=== PATIENT | male | born 1930 | race Caucasian/White ===

== ENCOUNTER 2017-02-11 09:43 | Inpatient (IN) | payer OTHER, BC ==
[2017-02-11 09:48] VITALS: BMI 28.1
--- NOTE | 2017-02-11 10:41 | PDOC ---
History of Present Illness <Cherie Hauser - Last Filed: 02/11/17 13:22> - General History Source: Patient Exam Limitations: No Limitations - History of Present Illness Initial Comments: 02/11/17 11:28 Chief complaint: Wound on left lower extremity anteriorly History of present illness: Patient is an 86-year-old male with a history of venous insufficiency left leg and left lower leg wound. Patient has been followed by a phone center here patient is with his daughter thought that they had an appointment at the wound center today however it was yesterday. Patient' s daughter thinks that the wound is not improving on it, wanted patient seen today however was unable to have an appointment today and was told to come to the ER. Patient's daughter states that her father is constantly on his feet is outside working in the [employer] or doing some type of activity on his feet and does not rest and elevate his legs often. Patient reports that he does wears compression stockings and he uses his cream twice a day and covers the wound with gauze and does not remove it at any time to let wound air out. Patient denies having chills or fever. Skin on left lower extremity is oozing clear fluid. Pt. has h/o MRSA of wound LLE 09/30/16. 02/11/17 16:01 02/12/17 14:37 Timing/Duration: changing over time Severity: mild Associated Symptoms: reports: denies symptoms <DeweyParis - Last Filed: 02/12/17 14:38> - General Chief Complaint: Redness To Affected Area Stated Complaint: (WOUND CARE SENT) Time Seen by Provider: 02/11/17 10:02 Past History <Cherie Hauser - Last Filed: 02/11/17 13:22> - Past Medical History Other medical history: leg ulcer, venous insufficiency left leg - Psycho/Social/Smoking Cessation Hx Anxiety: No Suicidal Ideation: No Smoking History: Never smoked Have you smoked in the past 12 months: No Information on smoking cessation initiated: No Hx Alcohol Use: No Drug/Substance Use Hx: No Substance Use Type: None <Paris Palomo - Last Filed: 02/12/17 14:38> - Past Medical History Allergies/Adverse Reactions: Allergies Allergy/AdvReac Type Severity Reaction Status Date / Time No Known Allergies Allergy Verified 02/11/17 09:44 Home Medications: Ambulatory Orders Collagenase Clostridium Hist. [Santyl] 1 applic TP DAILY #30 oint...g. 12/13/16 Cephalexin [Keflex] 500 mg PO TID #21 capsule MDD 3 02/03/17 Review of Systems - Review of Systems Able to Perform ROS?: Yes Constitutional: No: Symptoms Reported HEENTM: No: Symptoms Reported Respiratory: No: Symptoms reported Cardiac (ROS): No: Symptoms Reported ABD/GI: No: Symptoms Reported : No: Symptoms Reported Musculoskeletal: No: Symptoms Reported Integumentary: Yes: Other (wound left anterior lower leg with clear drainage) Neurological: No: Symptoms reported <Paris Palomo - Last Filed: 02/12/17 14:38> *Physical Exam - Vital Signs Last Vital Signs Temp Pulse Resp BP Pulse Ox 98.6 F 72 18 112/69 98 02/11/17 09:45 02/11/17 09:45 02/11/17 09:45 02/11/17 09:45 02/11/17 11:54 <Cherie Hauser - Last Filed: 02/11/17 13:22> - Vital Signs Last Vital Signs Temp Pulse Resp BP Pulse Ox 98.6 F 72 18 112/69 96 02/11/17 09:45 02/11/17 09:45 02/11/17 09:45 02/11/17 09:45 02/11/17 09:45 - Physical Exam General Appearance: Yes: Appropriately Dressed Respiratory/Chest: positive: Lungs Clear, Normal Breath Sounds. negative: Chest Tender, Respiratory Distress Cardiovascular: positive: Regular Rhythm, Regular Rate, S1, S2 Vascular Pulses: Doralis-Pedis (L): 4+ Comments:: 02/11/17 11:27 + pedal pulse left Extremity: positive: Normal Capillary Refill, Normal Range of Motion, Swelling ( left anterior/medial ankle) Integumentary: positive: Warm, Other (hyperpigmented skin left lower proximal anterior leg 13 cm L x 20 cm W, wound anterior LLE 3.5 cm l x 2.8 w surrounded by erythema left anterior distal leg seeping clear discharge approx 10 cm L X 13 cm w of granulated skin) <Paris Palomo - Last Filed: 02/12/17 14:38> ED Treatment Course - LABORATORY CBC & Chemistry Diagram: 02/11/17 10:42 02/11/17 10:42 - ADDITIONAL ORDERS Additional order review: Laboratory Results 02/11/17 10:42 Sodium 139 Potassium 4.1 Chloride 106 Carbon Dioxide 27 Anion Gap 6 L BUN 14 Creatinine 0.8 Creat Clearance w eGFR > 60 Random Glucose 93 Calcium 8.5 Total Bilirubin 0.4 AST 18 ALT 18 Alkaline Phosphatase 70 Total Protein 6.7 Albumin 3.4 02/11/17 10:42 RBC 4.26 MCV 90.4 MCHC 33.8 RDW 13.3 MPV 7.7 Neutrophils % 67.0 Lymphocytes % 20.5 Monocytes % 10.5 H Eosinophils % 1.5 Basophils % 0.5 - RADIOLOGY Radiology Studies Ordered: Category Date Time Status CHEST X-RAY PORTABLE* [RAD] Stat Radiology 02/11/17 12:53 Ordered <Cherie Hauser - Last Filed: 02/11/17 13:22> - LABORATORY CBC & Chemistry Diagram: 02/12/17 06:00 02/12/17 06:00 <Paris Palomo - Last Filed: 02/12/17 14:38> Medical Decision Making - Medical Decision Making 02/11/17 12:05 Patient is an 86-year-old male with a history of venous insufficiency left leg and left lower leg wound. Patient has been followed by a phone center here patient is with his daughter thought that they had an appointment at the wound center today however it was yesterday. Patient's daughter thinks that the wound is not improving on it, wanted patient seen today however was unable to have an appointment today and was told to come to the ER. Patient's daughter states that her father is constantly on his feet is outside working in the [employer] or doing some type of activity on his feet and does not rest and elevate his legs often. Patient reports that he does wears compression stockings and he uses his cream twice a day and covers the wound with gauze and does not remove it at any time to let wound air out. Patient denies having chills or fever. Skin on left lower extremity is oozing clear fluid. Started treatment with Keflex 500 mg tid for 7 days he reports that he took this medication. Pt. thinks that the Santyl is too strong LEFT LOWER LEG CELLULITIS LLL CHRONIC WOUND LLL VENOUS INSUFFIENCY PLAN: CBC WITH DIFF CMP U/A IV INSERT EKG CHEST PA/LATERAL CONSULT WITH I & D CONSULT WITH FROM WOUND CENTER he will come down to see he reports that pt is non compliant with treatment does not wear compression stockings,applies creams or ointment he likes Dr. Carmona came to se pt. would like him admitted to hospitalist due to po antibiotic failure and cellulitis left left leg, I & D consult, he will order silvadne cream and cassy wrap to area, vancomycin 1 gm IV PB now. Laboratory Tests 02/11/17 02/11/17 10:42 10:42 WBC 6.6 RBC 4.26 Hgb 13.0 Hct 38.5 MCV 90.4 MCH 30.6 MCHC 33.8 RDW 13.3 Plt Count 224 MPV 7.7 Neutrophils % 67.0 Lymphocytes % 20.5 Monocytes % 10.5 H Eosinophils % 1.5 Basophils % 0.5 Sodium 139 Potassium 4.1 Chloride 106 Carbon Dioxide 27 Anion Gap 6 L BUN 14 Creatinine 0.8 Creat Clearance w eGFR > 60 Random Glucose 93 Calcium 8.5 Total Bilirubin 0.4 AST 18 ALT 18 Alkaline Phosphatase 70 Total Protein 6.[address] Navid Ramos hospitalist will admit pt. 02/11/17 12:50 02/11/17 12:54 02/11/17 12:55 02/12/17 14:37 <Paris Palomo - Last Filed: 02/12/17 14:38> *DC/Admit/Observation/Transfer - Discharge Dispostion Admit: Yes <Cherie Hauser - Last Filed: 02/11/17 13:22> <Paris Palomo - Last Filed: 02/12/17 14:38> Diagnosis at time of Disposition: Cellulitis, Chronic ulcer of leg - Referrals
[2017-02-11 11:13] LABS: BASOPHIL 0.5 % (0-2.0); EOSINOPHIL 1.5 % (0-4.5); MCH 30.6 pg (25.7-33.7); MCHC 33.8 g/dl (32.0-35.9); MEAN CELL VOLUME 90.4 fl (80-96); MEAN PLT VOLUME 7.7 fl (7.5-11.1); PLATELET COUNT 224 K/MM3 (134-434); RDW 13.3 % (11.9-15.9); WHITE BLOOD COUNT 6.6 K/mm3 (4.0-10.0)
[2017-02-11 11:35] LABS: ALBUMIN 3.4 g/dl (3.4-5.0); ALK PHOS 70 U/L (45-117); ANION GAP 6 (8-16); BILIRUBIN,TOTAL 0.4 mg/dL (0.2-1.0); CALCIUM 8.5 mg/dL (8.5-10.1); CO2 27 mmol/L (21-32); CREATININE 0.8 mg/dL (0.7-1.3); GLUCOSE,RANDOM 93 mg/dL (74-106); SGOT/AST 18 U/L (15-37); SGPT/ALT 18 U/L (12-78); TOT PROT 6.7 g/dl (6.4-8.2)
[2017-02-11] MEDS ORDERED: VANCOMYCIN 1 GRAM (PRE-DOCKED) 1,000 MG/250 ML BAG IVPB ONE ×2 (12:01→13:30)
--- NOTE | 2017-02-11 13:32 | PN ---
Progress Note (short form) - Note Progress Note: Vascular Surgery pt seen and examined. RLE venous stasis with ulcer Pt well known to wound care clinic Was given keflex for seven days. Left lower ext still has cellulitis Came into ER today. Will start slivadene to left lower ext with cassy for compression. Cultures taken. Will need IV antibiotics. ID input Jose Guadalupe Carmona DO
[2017-02-11 13:57] LABS: URINE APPEARANCE CLEAR; URINE BILIRUBIN NEGATIVE (NEGATIVE); URINE BLOOD NEGATIVE (NEGATIVE); URINE COLOR LTYELLOW; URINE GLUCOSE (UA) NEGATIVE (NEGATIVE); URINE KETONE NEGATIVE (NEGATIVE); URINE LEUK ESTERASE NEGATIVE (NEGATIVE); URINE NITRITE NEGATIVE (NEGATIVE); URINE PROTEIN NEGATIVE (NEGATIVE); URINE UROBILINOGEN NEGATIVE E.U./dl (0.2-1.0)
[2017-02-11] MEDS: SILVER SULFADIAZINE 1% TOP CREAM 50 GM JAR TP SCH ×2 (14:45→15:11)
[2017-02-11] MEDS ORDERED: ACETAMINOPHEN 325 MG TABLET (FP) PO PRN (15:02)
--- NOTE | 2017-02-11 15:11 | HP ---
Admitting History and Physical - Primary Care Physician PCP: Rahat Bianchi MD - Admission Chief Complaint: Non healing LLE History of Present Illness: 86M no PMH except LLE venous stasis who presents to the hospital with his daughter as they thought he had a wound care appointment today, but in fact, their appointment was yesterday. patient told by wound clinic to go to ED. Per patient and his daughter he has had a long history of LLE ulcers. He recently has not been able to heel his LLE. Per daughter he has not stayed of LLE as instructed and has been walking around. He has been using collagenase on his ulcer. He denies nausea vomiting fevers chills chest pain and SOB. He just completed a 7 day course of keflex yesterday and his cellulitis has not improved. History Source: Patient, Family Member Limitations to Obtaining History: Language Barrier - Past Medical History Dermatology: Yes: Cellulitis - Past Surgical History Past Surgical History: Yes: None - Smoking History Smoking history: Former smoker Have you smoked in the past 12 months: No - Alcohol/Substance Use Hx Alcohol Use: No Home Medications - Allergies Allergies/Adverse Reactions: Allergies Allergy/AdvReac Type Severity Reaction Status Date / Time No Known Allergies Allergy Verified 02/11/17 09:44 - Home Medications Home Medications: Ambulatory Orders Collagenase Clostridium Hist. [Santyl] 1 applic TP DAILY #30 oint...g. 12/13/16 Cephalexin [Keflex] 500 mg PO TID #21 capsule MDD 3 02/03/17 Family Disease History - Family Disease History Family History: Denies Review of Systems - Review of Systems Constitutional: reports: No Symptoms Eyes: reports: No Symptoms HENT: reports: No Symptoms Neck: reports: No Symptoms Cardiovascular: reports: No Symptoms Respiratory: reports: No Symptoms Gastrointestinal: reports: No Symptoms Genitourinary: reports: No Symptoms Musculoskeletal: reports: No Symptoms Integumentary: reports: Wound (non healing LLE), Other (venous stasis) Neurological: reports: No Symptoms Endocrine: reports: No Symptoms Physical Examination Vital Signs: Vital Signs Temperature 97.9 F 02/11/17 14:43 Pulse Rate 75 02/11/17 14:43 Respiratory Rate 18 02/11/17 14:43 Blood Pressure 139/71 02/11/17 14:43 O2 Sat by Pulse Oximetry (%) 98 02/11/17 14:43 Constitutional: Yes: Well Nourished, No Distress, Calm Eyes: Yes: Conjunctiva Clear HENT: Yes: Atraumatic, Normocephalic Neck: Yes: Supple, Trachea Midline Cardiovascular: Yes: Regular Rate and Rhythm Respiratory: Yes: Regular, CTA Bilaterally Gastrointestinal: Yes: Normal Bowel Sounds, Soft Extremities: Yes: Other (LLE has proximal healed stasis dermatitis distally circumferentially around the ankle large non healing ulcer with excoriated skin circumferentially) Edema: LLE: Trace Neurological: Yes: Alert, Oriented ...Motor Strength: WNL Assessment/Plan 86M with hsitory of venous stasis and LLE ulceration presents to the hospital with cellulitis after failed PO outpatient treatment with keflex. Given Vanco in ED start Cefazolin 1Gm Q8h Re diet ID consult vascular consult PT consult Wound care with silvadene and compression stockings per vascular Case discussed with attending and mecial team. Full H&P to follow by medical team. Visit type - Emergency Visit Emergency Visit: Yes ED Registration Date: 02/11/17 Care time: The patient presented to the Emergency Department on the above date and was hospitalized for further evaluation of their emergent condition. - New Patient This patient is new to me today: Yes Date on this admission: 02/11/17 - Critical Care Critical Care patient: No
--- NOTE | 2017-02-11 15:25 | PN ---
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
--- NOTE | 2017-02-11 16:10 | HP ---
PCP: Dr. Rahat Bianchi MD CHIEF COMPLAINT: Patient brought by daughter who states that the patient's "leg is not getting better" HISTORY OF PRESENT ILLNESS: Pt is an 86yo M with no PMHx who is well known to Dr. Carmona in his wound care clinic, and presents to the ER because his lower leg leg wound is not improving. Patient is primarily a emirati speaker, speaks adequate mongolian, but most of the history was provided by the Daughter. She states that over a year ago the patient sustained a trauma to his LLE (banged it on something). Since then the leg wound has not improved. The patient has been seen by Dr. Carmona who has treated the wound with Santyl and Mir wraps. 1 week ago they went to Dr. Carmona's office, and he prescribed them Cefalexin PO 500mg TID (but of note, patient and daughter believes that he was supposed to take it only ONCE a day). She said that Dr. Carmona noted to them that if the leg did not improve, he would admit them (likely for IV antibiotics). After 7 days of Cefalexin, they noted no improvement, and went to the ER. ER course was notable for: (1) CBC, CMP (2) Vascular + ID Consult (3) Wound Culture - pending Recent Travel: None PAST MEDICAL HISTORY: None PAST SURGICAL HISTORY: Laser sclerotherapy by Dr. Carmona Social History: Patient lives at home with his . He takes care of his own medical management. 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 1 applic TP DAILY #30 oint...g. 12/13/16 [Santyl] Cephalexin [Keflex] 500 mg PO TID #21 capsule MDD 3 02/03/17 REVIEW OF SYSTEMS CONSTITUTIONAL: No fevers, no chills, no weakness, no YOLANDA HEENT: Endorses mild headaches at times, no nasal congstion, no throat pain, no visual changes CARDIOVASCULAR: No chest pain, no SOB, no palpitations, + peripheral swelling RESPIRATORY: No cough, no SOB, no orthopnea, no wheezing GASTROINTESTINAL: No abd pain, no N/V/D/C GENITOURINARY: No dysuria, hematuria MUSCULOSKELETAL: +myalgia on LLE, NEUROLOGIC: No headache, no focal weakness, no dizziness PHYSICAL EXAMINATION Vital Signs - 24 hr 02/11/17 02/11/17 14:00 14:43 Temperature 97.9 F Pulse Rate 63 Pulse Rate [ 75 Apical] Respiratory 18 18 Rate Blood Pressure 122/70 Blood Pressure 139/71 [Right Arm] O2 Sat by Pulse 100 98 Oximetry (%) PHYSICAL EXAM: GENERAL: Awake, alert, and fully oriented, in no acute distress. EYES: PERRLA, extraocular movements intact, NECK: Normal range of motion, supple without lymphadenopathy. LUNGS: Breath sounds equal, CTABL, No wheezes, and no crackles. HEART: Regular rate and rhythm, normal S1 and S2, 2/6 systolic murmur in R sternal border, ABDOMEN: Soft, nontender, not distended, normoactive bowel sounds MUSCULOSKELETAL: Normal range of motion at all joints. No bony deformities or tenderness. No CVA tenderness. UPPER EXTREMITIES: 2+ pulses, warm, well-perfused. No cyanosis. No clubbing. No peripheral edema. LOWER EXTREMITIES: - RLE: No venous stasis changes, no erythema, no swelling, 2+ pulses, normal temp, well-perfused, no edema, good sensation, 5/5 muscle strength - LLE: Venous stasis changes from mid anterior foot up to mid leg. Open anterior area without epidermal layer leaking with clear/white fluid, 2+ pulses , warmer than the RLE, good sensation, 5/5 muscle strength NEUROLOGICAL: Cranial nerves II-XII intact. Normal speech. Normal gait. LABS: CBC, BMP 02/11/17 10:42 02/11/17 10:42 Wound cultures - pending UA - negative AST - 18; ALT - 18 ASSESSMENT/PLAN: 86yo M patient with chronic LLE cellulitis after failure of PO antibiotics. # LLE Cellulitis - Patient failed Keflex 500mg PO TID x 7 days (as per hx, sounds like patient was not taking correct dose regimen) --> will give one dose Vano 1g IVPB + Cefazolin g IV Q8 - Patient likely overused Santyl (collagenase), causing skin breakdown --> Will switch to Silvadene + MIR wrap - Wound culture pending - Consulted: Dr. Carmona (vascular) + Dr. Steele (Infectious Disease) # Chronic Venous Insufficiency - S/p laser sclerotherapy - MIR wrap ordered, monitor, keep leg elevated # FEN - Fluids: None - Electrolytes: WNL, monitor - Nutrition: Regular Diet # Prophylaxis - DVT: Heparin SQ - GI: Not indicated - Deconditioning - PT ordered # Disposition - Monitor improvement, consult with vascular # Code Status - Will ask about code status Case discussed with Dr. Rachel M.D. who agrees with the plan Visit type - Emergency Visit Emergency Visit: Yes ED Registration Date: 02/11/17 Care time: The patient presented to the Emergency Department on the above date and was hospitalized for further evaluation of their emergent condition. - New Patient This patient is new to me today: Yes Date on this admission: 02/11/17 - Critical Care Critical Care patient: No
--- NOTE | 2017-02-11 16:53 | EKG ---
Test Reason : Blood Pressure : / mmHG Vent. Rate : 063 BPM Atrial Rate : 063 BPM P-R Int : 224 ms QRS Dur : 090 ms QT Int : 400 ms P-R-T Axes : 046 007 051 degrees QTc Int : 409 ms SINUS RHYTHM WITH 1 DEGREE AV BLOCK NONSPECIFIC ST CHANGES NO PREVIOUS ECGS AVAILABLE Confirmed by LUDIN PALMER MD ([id number]) on 02/11/2017 4:52:31 PM Referred By: Confirmed By:LUDIN PALMER MD
[2017-02-11] MEDS: CEFAZOLIN (PRE-DOCKED) 50 ML IVPB SCH (18:42)
[2017-02-11] MEDS: HEPARIN NA (PORCINE) 5,000 UNITS/ML 1ML VIAL SQ SCH (18:43)
--- NOTE | 2017-02-11 20:19 | PN ---
Teaching Attending Note Name of Resident: Gabriella Casarez ATTENDING PHYSICIAN STATEMENT I saw and evaluated the patient. I reviewed the resident's note and discussed the case with the resident. I agree with the resident's findings and plan as documented. SUBJECTIVE: Patient is comfortable with no acute distress OBJECTIVE: Vital Signs Temperature 99.0 F 02/11/17 18:40 Pulse Rate 61 02/11/17 18:40 Respiratory Rate 17 02/11/17 18:40 Blood Pressure 113/76 02/11/17 18:40 O2 Sat by Pulse Oximetry (%) 98 02/11/17 14:43 CBCD WBC 6.6 K/mm3 (4.0-10.0) 02/11/17 10:42 RBC 4.26 M/mm3 (4.00-5.60) 02/11/17 10:42 Hgb 13.0 GM/dL (11.7-16.9) 02/11/17 10:42 Hct 38.5 % (35.4-49) 02/11/17 10:42 MCV 90.4 fl (80-96) 02/11/17 10:42 MCHC 33.8 g/dl (32.0-35.9) 02/11/17 10:42 RDW 13.3 % (11.9-15.9) 02/11/17 10:42 Plt Count 224 K/MM3 (134-434) 02/11/17 10:42 MPV 7.7 fl (7.5-11.1) 02/11/17 10:42 CMP Sodium 139 mmol/L (136-145) 02/11/17 10:42 Potassium 4.1 mmol/L (3.5-5.1) 02/11/17 10:42 Chloride 106 mmol/L (98-107) 02/11/17 10:42 Carbon Dioxide 27 mmol/L (21-32) 02/11/17 10:42 Anion Gap 6 (8-16) L 02/11/17 10:42 BUN 14 mg/dL (7-18) 02/11/17 10:42 Creatinine 0.8 mg/dL (0.7-1.3) 02/11/17 10:42 Creat Clearance w eGFR > 60 (>60) 02/11/17 10:42 Random Glucose 93 mg/dL (74-106) 02/11/17 10:42 Calcium 8.5 mg/dL (8.5-10.1) 02/11/17 10:42 Total Bilirubin 0.4 mg/dL (0.2-1.0) 02/11/17 10:42 AST 18 U/L (15-37) 02/11/17 10:42 ALT 18 U/L (12-78) 02/11/17 10:42 Alkaline Phosphatase 70 U/L (45-117) 02/11/17 10:42 Total Protein 6.7 g/dl (6.4-8.2) 02/11/17 10:42 Albumin 3.4 g/dl (3.4-5.0) 02/11/17 10:42 Current Medications Generic Name Dose Route Start Last Admin Trade Name Freq PRN Reason Stop Dose Admin Acetaminophen 650 mg 02/11/17 15:02 Tylenol - PO Q4H PRN FEVER OR PAIN Heparin Sodium (Porcine) 5,000 unit 02/11/17 18:00 02/11/17 18:43 Heparin - SQ 5,000 unit Q8H-IV KENDRA Administration Cefazolin Sodium 50 mls @ 100 mls/hr 02/11/17 18:00 02/11/17 18:42 Ancef 1gm Ivpb (Pre-Docked) IVPB 100 mls/hr Q8H-IV KENDRA Administration Silver Sulfadiazine 1 applic 02/11/17 13:45 02/11/17 14:45 Silvadene - TP 1 applic DAILY KENDRA Administration Home Medications Medication Instructions Recorded Collagenase Clostridium Hist. 1 applic TP DAILY #30 oint...g. 12/13/16 [Santyl] Cephalexin [Keflex] 500 mg PO TID #21 capsule MDD 3 02/03/17 PE: LLE positive for discoloration per Resident's note Wound cultures - pending UA - negative AST - 18; ALT - 18 ASSESSMENT AND PLAN: 86yo M patient with chronic LLE cellulitis after failure of PO antibiotics. # Acute LLE Cellulitis -s/p Keflex 500mg PO TID x 7 days failed outpatient treatment , will start him on IV cefazolin ,s/p dose Vano 1g in ED. As per patient was on Santyl which caused skin breakdown --> switched to Silvadene and as per patient is helping and feels very happy.+ CYNTHIA wrap - Wound culture pending - Consulted: Dr. Carmona (vascular) + Dr. Steele (Infectious Disease) # Chronic Venous Insufficiency S/p laser sclerotherapy # CYNTHIA wrap ordered, monitor, keep leg elevated - DVT Px: Heparin SQ
--- NOTE | 2017-02-11 20:35 | CONS ---
DATE OF CONSULTATION: 02/11/2017 The patient is an 86-year-old male evaluated for cellulitis of the left lower extremity. The patient has a history of nonhealing left leg ulcer. He had been followed in the wound care center. He was recently prescribed Keflex for suspected cellulitis of the left lower extremity without significant improvement. He presented to the emergency room today with worsening left leg pain, swelling, and erythema. He denies any associated fever or chills. He is known to the wound care center and is being treated for chronic venous stasis ulcer. He was being treated with Silvadene with Mir wrap for compression. Cultures were obtained as an outpatient and had revealed MRSA, staphylococcus coagulase negative, and Corynebacterium. Past medical history positive for chronic venous stasis, dermatitis of the lower extremities, and chronic venous stasis ulcers. No known allergies. Medications include Tylenol, heparin, Silvadene, Keflex. SOCIAL HISTORY: Lives at home with family members. Nonsmoker. SYSTEMS REVIEW: Neurologic: No loss of consciousness, seizure activity, or focal weakness. Cardiac: Negative chest pain or palpitations. Respiratory: Negative cough or sputum production. Gastrointestinal: Negative vomiting or diarrhea. Genitourinary: Negative for urinary tract infection. LABORATORY DATA: White count 6.6, 67 neutrophils, 20 lymphocytes,10 monocytes, hematocrit 38.5, platelet count 224. BUN 14, creatinine 0.8. PHYSICAL EXAMINATION: General: He is awake and alert, he is not acutely toxic appearing. Vital Signs: Temperature 98.6. Blood pressure 112/69. Pulse 72, regular. Respirations 18 per minute. Eyes: Sclerae anicteric. Heart Sounds: S1, S2. Lungs: Clear. Abdomen: Soft. No tenderness elicited. No mass, rebound or rigidity. Extremities: Chronic venous stasis dermatitis of the lower extremities bilaterally, left greater than right. There is a large superficial ulceration present over the free tibial aspect of the distal left lower extremity extending to the posterior part of the leg. There is some erythema and warmth superimposed on chronic venous stasis dermatitis in the proximal leg. No lymphangitic streaking. IMPRESSION: 1. 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 2. Nonhealing left lower extremity ulcer. 3. Positive wound culture for methicillin-resistant Staphylococcus aureus likely represents contamination with skin shantelle. Advised wound care evaluation, cefazolin 1 g IV piggyback every 8 hours in conjunction with elevation and local wound care. Will follow. Thank you for the kind referral. KARIS NATION M.D. YULIANA/[id number]
[2017-02-12] MEDS: HEPARIN NA (PORCINE) 5,000 UNITS/ML 1ML VIAL SQ SCH ×3 (01:54→18:11)
[2017-02-12] MEDS: CEFAZOLIN (PRE-DOCKED) 50 ML IVPB SCH ×2 (01:54→10:40)
[2017-02-12 07:21] LABS: BASOPHIL 0.5 % (0-2.0); EOSINOPHIL 3.2 % (0-4.5); MCH 30.5 pg (25.7-33.7); MCHC 33.7 g/dl (32.0-35.9); MEAN CELL VOLUME 90.3 fl (80-96); MEAN PLT VOLUME 7.9 fl (7.5-11.1); NEUTROPHILS 59.3 % (42.8-82.8); PLATELET COUNT 214 K/MM3 (134-434); RDW 13.1 % (11.9-15.9)
[2017-02-12 08:04] LABS: ALBUMIN 3.1 g/dl (3.4-5.0); ALK PHOS 63 U/L (45-117); ANION GAP 8 (8-16); BILIRUBIN,TOTAL 0.7 mg/dL (0.2-1.0); CALCIUM 8.2 mg/dL (8.5-10.1); CO2 28 mmol/L (21-32); CREATININE 0.8 mg/dL (0.7-1.3); GLUCOSE,RANDOM 99 mg/dL (74-106); MAGNESIUM 2.4 mg/dL (1.8-2.4); PHOSPHOROUS 2.7 mg/dL (2.5-4.9); SGOT/AST 19 U/L (15-37); SGPT/ALT 15 U/L (12-78); TOT PROT 6.3 g/dl (6.4-8.2)
--- NOTE | 2017-02-12 08:12 | PN ---
Physical Exam: SUBJECTIVE: Patient seen and examined this AM. No complaints, no CP, no SOB, no fever, no chills. States his legs are no longer in pain like yesterday. OBJECTIVE: Vital Signs Period Temp Pulse Resp BP Sys/Sousa Pulse Ox Last 24 Hr 97.9 F-99.0 F 60-75 17-20 108-139/54-76 98-100 GENERAL: Awake, alert, and fully oriented, in no acute distress. EYES: PERRLA, extraocular movements intact, LUNGS: Breath sounds equal, CTABL, No wheezes, and no crackles. HEART: Regular rate and rhythm, normal S1 and S2, 2/6 systolic murmur in R sternal border, ABDOMEN: Soft, nontender, not distended, normoactive bowel sounds MUSCULOSKELETAL: Normal range of motion at all joints. No bony deformities or tenderness. No CVA tenderness. UPPER EXTREMITIES: 2+ pulses, warm, well-perfused. No cyanosis. No clubbing. No peripheral edema. LOWER EXTREMITIES: - RLE: No venous stasis changes, no erythema, no swelling, 2+ pulses, normal temp, well-perfused, no edema, good sensation, 5/5 muscle strength - LLE: Leg was wrapped this AM, will re-examine later today. Able to see open areas with with clear/white fluid, 2+ pulses, warmer than the RLE, good sensation, 5/5 muscle strength NEUROLOGICAL: Cranial nerves II-XII intact, no facial droop. Normal sensation in B/L extremities, 5/5 muscular strength in Upper and lower extremities, Reflexes 2+. Normal speech. Normal gait. Laboratory Results - last 24 hr 02/12/17 06:00 WBC 6.0 RBC 4.13 Hgb 12.6 Hct 37.4 MCV 90.3 MCH 30.5 MCHC 33.7 RDW 13.1 Plt Count 214 MPV 7.9 Neutrophils % 59.3 Lymphocytes % 25.6 D Monocytes % 11.4 H Eosinophils % 3.2 D Basophils % 0.5 Active Medications Generic Name Dose Route Start Last Admin Trade Name Freq PRN Reason Stop Dose Admin Acetaminophen 650 mg 02/11/17 15:02 Tylenol - PO Q4H PRN FEVER OR PAIN Heparin Sodium (Porcine) 5,000 unit 02/11/17 18:00 07/12/17 01:54 Heparin - SQ 5,000 unit Q8H-IV KENDRA Administration Cefazolin Sodium 50 mls @ 100 mls/hr 02/11/17 18:00 02/12/17 01:54 Ancef 1gm Ivpb (Pre-Docked) IVPB 100 mls/hr Q8H-IV KENDRA Administration Silver Sulfadiazine 1 applic 02/11/17 13:45 02/11/17 14:45 Silvadene - TP 1 applic DAILY KENDRA Administration Wound cultures - pending UA - negative ASSESSMENT/PLAN: 86yo M patient with chronic LLE cellulitis after failure of PO antibiotics. # LLE Cellulitis - Wound cultures show probable MRSA - Patient failed Keflex 500mg PO TID x 7 days , s/p one dose Vano 1g IVPB, will continue Cefazolin g IV Q8 - but discuss with ID tomorrow, if final cultures are MRSA will switch antibiotics - Patient likely overused Santyl (collagenase), causing skin breakdown --> switched to Silvadene + CYNTHIA wrap - Consulted: Dr. Carmona (vascular) + Dr. Steele (Infectious Disease) # Chronic Venous Insufficiency - S/p laser sclerotherapy - CYNTHIA wrap ordered, monitor, keep leg elevated # FEN - Fluids: None - Electrolytes: WNL, monitor - Nutrition: Regular Diet # Prophylaxis - DVT: Heparin SQ - GI: Not indicated - Deconditioning - PT ordered # Disposition - Monitor improvement, consult with vascular # Code Status - Will ask about code status Visit type - Emergency Visit Emergency Visit: No - New Patient This patient is new to me today: No - Critical Care Critical Care patient: No - Discharge Referral Referred to [facility] Med P.C.: No
--- NOTE | 2017-02-12 12:08 | PN ---
Progress Note, Physician History of Present Illness: Reports less leg pain No c/o fever/ chills - Current Medication List Current Medications: Active Medications Acetaminophen (Tylenol -) 650 mg PO Q4H PRN PRN Reason: FEVER OR PAIN Heparin Sodium (Porcine) (Heparin -) 5,000 unit SQ Q8H-IV KENDRA Last Admin: 02/12/17 10:40 Dose: 5,000 unit Cefazolin Sodium (Ancef 1gm Ivpb (Pre-Docked)) 50 mls @ 100 mls/hr IVPB Q8H-IV KENDRA Last Admin: 02/12/17 10:40 Dose: 100 mls/hr Silver Sulfadiazine (Silvadene -) 1 applic TP DAILY KENDRA Last Admin: 02/11/17 14:45 Dose: 1 applic - Objective Vital Signs: Vital Signs Temperature 98.5 F 02/12/17 11:00 Pulse Rate 63 02/12/17 11:00 Respiratory Rate 18 02/12/17 11:00 Blood Pressure 118/73 02/12/17 11:00 O2 Sat by Pulse Oximetry (%) 98 02/11/17 21:25 Constitutional: Yes: No Distress Eyes: Yes: Conjunctiva Clear Cardiovascular: Yes: Regular Rate and Rhythm, S1, S2 Respiratory: Yes: CTA Bilaterally Gastrointestinal: Yes: Normal Bowel Sounds, Soft. No: Tenderness Extremities: Yes: Other (decreased erythema/ warmth L LE + large superficial ulcer without drainage + stasis dermatitits) Labs: CBC, BMP 02/12/17 06:00 02/12/17 06:00 Assessment/Plan Cellulitis L LE Non- healing L LE ulcer Chronic venous stasis dermatitis Continue cefazolin Local wound care
[2017-02-12] MEDS: SILVER SULFADIAZINE 1% TOP CREAM 50 GM JAR TP SCH (14:30)
--- NOTE | 2017-02-12 15:31 | PN ---
Teaching Attending Note Name of Resident: Gabriella Casarez ATTENDING PHYSICIAN STATEMENT I saw and evaluated the patient. I reviewed the resident's note and discussed the case with the resident. I agree with the resident's findings and plan as documented. SUBJECTIVE: no fever or chills, LLE pain . no CP ro SOB OBJECTIVE: NAD CV : RRR, 2/6 SM at apex Lung s: CTAB ext : L leg with erythema , thick skin , ulceration and slight oozing with increased warmth over Lower leg. upper leg with darker discoloration . DP 2+ b/ l . No edema or erythema over R leg ASSESSMENT AND PLAN: 86yo Man with h/o chronic LLE edema and cellulitis , who presneted with increaswd warmth and pain after a course of Abx 1- Cellulitis of LLE : - cont cefazolin - wound cx with presumptive MRSA , will d/w ID - cont Silver Sulvadizine - CYNTHIA wrap 2- DVT PX, heparin sq
[2017-02-12] MEDS ORDERED: ceFAZolin SODIUM 1 GM VIAL ONE (18:06)
[2017-02-12] MEDS ORDERED: DEXTROSE 5%-WATER - 50 ML IVPB ONE (18:06)
[2017-02-12] MEDS: CEFAZOLIN 1 GM in DEXTROSE 5%-WATER - 50 ML IVPB SCH (18:10)
[2017-02-13] MEDS ORDERED: ceFAZolin SODIUM 1 GM VIAL ONE ×3 (00:49→17:03)
[2017-02-13] MEDS ORDERED: DEXTROSE 5%-WATER - 50 ML IVPB ONE ×3 (00:49→17:04)
[2017-02-13] MEDS: CEFAZOLIN 1 GM in DEXTROSE 5%-WATER - 50 ML IVPB SCH ×3 (01:04→17:10)
[2017-02-13] MEDS: HEPARIN NA (PORCINE) 5,000 UNITS/ML 1ML VIAL SQ SCH ×3 (01:05→17:09)
[2017-02-13 07:31] LABS: MCH 30.8 pg (25.7-33.7); MCHC 34.3 g/dl (32.0-35.9); MEAN CELL VOLUME 89.8 fl (80-96); PLATELET COUNT 222 K/MM3 (134-434); WHITE BLOOD COUNT 6.1 K/mm3 (4.0-10.0)
[2017-02-13 07:48] LABS: ANION GAP 8 (8-16); CALCIUM 8.3 mg/dL (8.5-10.1); CO2 28 mmol/L (21-32); GLUCOSE,RANDOM 92 mg/dL (74-106)
[2017-02-13 07:49] LABS: CREATININE 0.8 mg/dL (0.7-1.3)
--- NOTE | 2017-02-13 08:47 | PN ---
Physical Exam: SUBJECTIVE: Patient seen and examined this AM. No acute complaints. States leg is visually getting better. Leg discomfort is getting better. Patient was ready to be discharged today, but I spoke to the patient's daughter and she refused to take him home. She states that she wants him here one more day because she is afraid he will come back with the same infection. I spoke to daughter in length about the infection and the fact that we are specifically treating the organism, but she expressed she did not want him to leave. OBJECTIVE: Vital Signs Period Temp Pulse Resp BP Sys/Sousa Pulse Ox Last 24 Hr 97.9 F-98.9 F 57-64 18-20 113-136/57-73 97-98 GENERAL: Awake, alert, and fully oriented, in no acute distress. EYES: PERRLA, extraocular movements intact, LUNGS: Breath sounds equal, CTABL, No wheezes, and no crackles. HEART: Regular rate and rhythm, normal S1 and S2, 2/6 systolic murmur in R sternal border, ABDOMEN: Soft, nontender, not distended, normoactive bowel sounds MUSCULOSKELETAL: Normal range of motion at all joints. No bony deformities or tenderness. No CVA tenderness. UPPER EXTREMITIES: 2+ pulses, warm, well-perfused. No cyanosis. No clubbing. No peripheral edema. LOWER EXTREMITIES: - RLE: No venous stasis changes, no erythema, no swelling, 2+ pulses, normal temp, well-perfused, no edema, good sensation, 5/5 muscle strength - LLE: Leg examined this AM. Wrap removed. Open wound is much improved with silvadene, not draining as much as before, 2+ pulses, warmer than the RLE, good sensation, 5/5 muscle strength NEUROLOGICAL: Cranial nerves II-XII intact, no facial droop. Normal sensation in B/L extremities, 5/5 muscular strength in Upper and lower extremities, Reflexes 2+. Normal speech. Normal gait. Laboratory Results - last 24 hr 02/13/17 02/13/17 06:00 06:00 WBC 6.1 RBC 4.30 Hgb 13.2 Hct 38.6 MCV 89.8 MCH 30.8 MCHC 34.3 RDW 13.0 Plt Count 222 MPV 8.0 Sodium 141 Potassium 4.4 Chloride 105 Carbon Dioxide 28 Anion Gap 8 BUN 14 Creatinine 0.8 Random Glucose 92 Calcium 8.3 L Active Medications Generic Name Dose Route Start Last Admin Trade Name Freq PRN Reason Stop Dose Admin Acetaminophen 650 mg 02/11/17 15:02 Tylenol - PO Q4H PRN FEVER OR PAIN Heparin Sodium (Porcine) 5,000 unit 02/11/17 18:00 02/13/17 01:05 Heparin - SQ 5,000 unit Q8H-IV KENDRA Administration Cefazolin Sodium 1 gm/ 50 mls @ 100 mls/hr 02/12/17 13:09 02/13/17 01:04 Dextrose IVPB 100 mls/hr Q8H-IV KENDRA Administration Silver Sulfadiazine 1 applic 02/11/17 13:45 02/12/17 14:30 Silvadene - TP 1 applic DAILY KENDRA Administration ASSESSMENT/PLAN: Wound cultures - pending UA - negative ASSESSMENT/PLAN: 86yo M patient with chronic LLE cellulitis after failure of PO antibiotics. # LLE Cellulitis - Patient failed Keflex 500mg PO TID x 7 days , treated with Cefazolin g IV Q8 for 3 days - Wound cultures show MRSA with contaminants - after final cultures, can switch antibiotics from Cefazolin to Bactrim PO BID for 5 more days until 02/18/17 - Consulted: Dr. Carmona (vascular) + Dr. Steele (Infectious Disease) # Chronic Venous Insufficiency - S/p laser sclerotherapy - CYNTHIA wrap ordered, monitor, keep leg elevated # FEN - Fluids: None - Electrolytes: WNL, monitor - Nutrition: Regular Diet # Prophylaxis - DVT: Heparin SQ - GI: Not indicated - Deconditioning - PT ordered # Code Status - Full Code Visit type - Emergency Visit Emergency Visit: No - New Patient This patient is new to me today: No - Critical Care Critical Care patient: No - Discharge Referral Referred to [facility] Med P.C.: No
[2017-02-13] MEDS: SILVER SULFADIAZINE 1% TOP CREAM 50 GM JAR TP SCH (10:59)
--- NOTE | 2017-02-13 13:33 | PN ---
Progress Note, Physician History of Present Illness: Reports less leg pain No fever/ chills Wound c/s MRSA ? significance - Current Medication List Current Medications: Active Medications Acetaminophen (Tylenol -) 650 mg PO Q4H PRN PRN Reason: FEVER OR PAIN Heparin Sodium (Porcine) (Heparin -) 5,000 unit SQ Q8H-IV KENDRA Last Admin: 02/13/17 11:07 Dose: 5,000 unit Cefazolin Sodium 1 gm/ (Dextrose) 50 mls @ 100 mls/hr IVPB Q8H-IV KENDRA Last Admin: 02/13/17 10:59 Dose: 100 mls/hr Silver Sulfadiazine (Silvadene -) 1 applic TP DAILY KENDRA Last Admin: 02/13/17 10:59 Dose: 1 applic - Objective Vital Signs: Vital Signs Temperature 98.7 F 02/13/17 06:32 Pulse Rate 57 L 02/13/17 06:32 Respiratory Rate 20 02/13/17 06:32 Blood Pressure 113/66 02/13/17 06:32 O2 Sat by Pulse Oximetry (%) 97 02/12/17 20:45 Constitutional: Yes: No Distress Eyes: Yes: Conjunctiva Clear Cardiovascular: Yes: Regular Rate and Rhythm, S1, S2 Respiratory: Yes: CTA Bilaterally Gastrointestinal: Yes: Normal Bowel Sounds, Soft. No: Tenderness Extremities: Yes: Other (erythema/ warmth proximal LE resolved) Labs: CBC, BMP 02/13/17 06:00 02/13/17 06:00 Assessment/Plan Cellulitis L LE resolved Non- healing L LE ulcer Chronic venous stasis dermatitis + Wound c/s MRSA probable contaminant Discontinue cefazolin Substitute Bactrim DS po bid x5d Local wound care
--- NOTE | 2017-02-13 17:01 | PN ---
Progress Note (short form) - Note Progress Note: [facility] Pt seen and examined. LLE cellulitis better. Dressing changed. Silvadene with cassy placed. ID changed antibiotics to bactrim po. If pt is DC, follow up in wound care clinic Make appt prior to DC please -- [phone] Jose Guadalupe Carmona DO
--- NOTE | 2017-02-13 18:52 | PN ---
Teaching Attending Note Name of Resident: Gabriella Casarez ATTENDING PHYSICIAN STATEMENT I saw and evaluated the patient. I reviewed the resident's note and discussed the case with the resident. I agree with the resident's findings and plan as documented. SUBJECTIVE: no fever or chills . has decreased pain in LLE OBJECTIVE: NAD CV : RRR, 2/6 SM at apex Lungs: CTAB ext : L leg with erythema , thick skin , ulceration and no discharge. upper leg with darker discoloration . DP 2+ b/l . No edema or erythema over R leg ASSESSMENT AND PLAN: 86yo Man with h/o chronic LLE edema and cellulitis , who presneted with increaswd warmth and pain after a course of Abx 1- Cellulitis of LLE : improved . cx noted . ID recs noted. d/w pt agreed to dc but family declined for now add bactrim to cefazolin and tomorrow will switch to po bactrim x 5 days cont Silver Sulvadizine CYNTHIA wrap 2- DVT PX, heparin sq
[2017-02-13] MEDS: SULFAMETHOXAZOLE/TRIMETHOPRIM 800MG/160MG D.S. TABLET PO SCH (23:13)
[2017-02-14] MEDS ORDERED: ceFAZolin SODIUM 1 GM VIAL ONE ×2 (01:22→09:16)
[2017-02-14] MEDS ORDERED: DEXTROSE 5%-WATER - 50 ML IVPB ONE ×2 (01:22→09:16)
[2017-02-14] MEDS: CEFAZOLIN 1 GM in DEXTROSE 5%-WATER - 50 ML IVPB SCH ×2 (01:44→09:29)
[2017-02-14] MEDS: HEPARIN NA (PORCINE) 5,000 UNITS/ML 1ML VIAL SQ SCH ×2 (01:45→09:29)
[2017-02-14] MEDS: SILVER SULFADIAZINE 1% TOP CREAM 50 GM JAR TP SCH (09:30)
[2017-02-14] MEDS: SULFAMETHOXAZOLE/TRIMETHOPRIM 800MG/160MG D.S. TABLET PO SCH (09:32)
[2017-02-14 15:13] VITALS: BP 121/78; PULSE 71; TEMP 99
--- NOTE | 2017-02-14 15:30 | DS ---
Physical Exam: SUBJECTIVE: Patient seen and examined this AM, without any complaints. He complained of no chest pain, no shortness of breath, no fevers, no chills. The patient states that everytime he looks at his leg he thinks it is getting better. OBJECTIVE: Vital Signs Period Temp Pulse Resp BP Sys/Sousa Pulse Ox Last 24 Hr 98.1 F-99.0 F 61-71 18-20 110-127/53-78 95-96 PHYSICAL EXAM GENERAL: Awake, alert, and fully oriented, in no acute distress. EYES: PERRLA, extraocular movements intact, LUNGS: Breath sounds equal, CTABL, No wheezes, and no crackles. HEART: Regular rate and rhythm, normal S1 and S2, 2/6 systolic murmur in R sternal border, ABDOMEN: Soft, nontender, not distended, normoactive bowel sounds MUSCULOSKELETAL: Normal range of motion at all joints. No bony deformities or tenderness. No CVA tenderness. UPPER EXTREMITIES: 2+ pulses, warm, well-perfused. No cyanosis. No clubbing. No peripheral edema. LOWER EXTREMITIES: - RLE: No venous stasis changes, no erythema, no swelling, 2+ pulses, normal temp, well-perfused, no edema, good sensation, 5/5 muscle strength - LLE: Leg examined this AM. Wrap removed. Open wound is much improved with silvadene, not draining as much as before, 2+ pulses, warmer than the RLE, good sensation, 5/5 muscle strength NEUROLOGICAL: Cranial nerves II-XII intact, no facial droop. Normal sensation in B/L extremities, 5/5 muscular strength in Upper and lower extremities, Reflexes 2+. Normal speech. Normal gait. Date of Admission:02/11/17 Date of Discharge: 02/14/17 HOSPITAL COURSE: Bertrand Sheridan is an 86yo male patient with chronic left lower extremity cellulitis who came to the emergency department after he said his leg was "getting worse". He stated that a year ago he sustained trauma to his Left leg and has has been seen and treated by Dr. Carmona at wound care ever since. He was prescribed Keflex 500mg PO TID by Dr. Carmona, but only took the pills once a day. We admitted him for stronger antibiotic medications. # Left Lower Extremity Cellulitis - We treated the patient with Cefazolin 1g IV for 3 days. We obtained wound cultures with grew MRSA. We spoke to the Infectious Disease physician Dr. Steele who stated that the MRSA+ cultures that were multiresistant to many antibiotics were probably due to contamination instead of colonization. He recommended treatment with PO Bactrim (TMP/SMX) Double Strength BID for [address] Carmona also came to see the patient and recommended Silvadene and CYNTHIA wraps. The patient did well during the hospitalization with no acute events. The patient was medically cleared to be discharged on February 13, 2017 but the family preferred he stay another day. He will be discharged today on February 14 to his home. The patient was made aware of his hospital course and plan of action. Minutes to complete discharge: 45 Discharge Summary Reason For Visit: CHRONIC ULCER OF LOWER EXTREMITY; CELLULITIS Current Active Problems Cellulitis (Acute) Chronic ulcer of leg (Chronic) Condition: Improved - Instructions Diet, Activity, Other Instructions: You were admitted because you had an infection of your left lower leg. We treated it with IV antibiotics. The wound culture came back positive for MRSA ( Methcillin Resistant Staphylococcus Aureus). We are sending you home on Bactrim (TMP/SMX) BID for 4 more days. Please continue to use Silvadene, Collagenase and CYNTHIA wraps. Please followup with your primary care provider. Your next wound care appointment with Dr. Carmona is on FridayFebruary 17 at 9AM. If you experience any serious symptoms please return to the emergency room Referrals: Rahat Bianchi MD, [Primary Care Provider] - 1 Week Jose Guadalupe Carmona MD [Staff Physician] - 1 Week Disposition: HOME - Home Medications Comprehensive Discharge Medication List: Ambulatory Orders Collagenase Clostridium Hist. [Santyl] 1 applic TP DAILY #30 oint...g. 12/13/16 Sulfamethoxazole/Trimethoprim [Bactrim Ds -] 1 tab PO BID #10 tablet 02/13/17 Silver Sulfadiazine 1% Top Cr [Silvadene -] 1 applic TP DAILY #1 jar 02/14/17 This patient is new to me today: No Emergency Visit: No Critical Care patient: No - Discharge Referral Referred to [facility] Med P.C.: No
--- NOTE | 2017-02-14 19:25 | PN ---
Teaching Attending Note Name of Resident: Gabriella Casarez ATTENDING PHYSICIAN STATEMENT I saw and evaluated the patient. I reviewed the resident's note and discussed the case with the resident. I agree with the resident's findings and plan as documented. SUBJECTIVE: no fever or chills. felt much better today OBJECTIVE: NAD CV : RRR, 2/6 SM at apex Lungs: CTAB ext : L leg with erythema , thick skin , ulceration and no discharge. ( improved ) .upper leg with darker discoloration . DP 2+ b/l . No edema or erythema over R leg ASSESSMENT AND PLAN: 86yo Man with h/o chronic LLE edema and cellulitis , who presneted with increaswd warmth and pain after a course of Abx 1- Cellulitis of LLE : improved . cx noted ( MRSA) Case was d/w ID, bactrim was recommended cont Silver Sulvadizine CYNTHIA wrap dc home . f/u with vascular and ID
== END 2017-02-14 15:57 | disposition home or self-care (01) | DRG 603 ==
LOC: JER 09:43 → JERBED 13:23 → J7W 18:05
PROVIDERS: ADMIT Internal Medicine; ATTEND Internal Medicine
DX: L03.116 Cellulitis of left lower limb (principal); L97.929 Non-pressure chronic ulcer of unspecified part of left lower leg with unspecified severity; I87.2 Venous insufficiency (chronic) (peripheral); Z22.322 Carrier or suspected carrier of Methicillin resistant Staphylococcus aureus
CPT/HCPCS: 36415; 71010-TC; 80048; 80053; 81003; 83735; 84100; 85025; 85027; 87070; 87186; 87205; 93005; 93010; 97116-GP; 97161-GP; 99284-25; J1644